=== PATIENT | female | born 1960 | race Caucasian/White ===

== ENCOUNTER 2023-07-05 15:48 | Inpatient (IN) | payer MEDICARE, OTHER ==
[~2023-07-05] VITALS: Ht 167.6 cm; Wt 87.5 kg
[2023-07-05] MEDS ORDERED: KETOROLAC TROMETHAMINE INJ 30 MG/ML VIAL ONE (16:43)
[2023-07-05] MEDS ORDERED: KETOROLAC TROMETHAMINE 15 MG/ML VIAL IV ONE (17:00)
[2023-07-05 17:24] LABS: BASOPHILS # (AUTO) 0.2 K/uL (0.0-0.2); BASOPHILS % (AUTO) 1.2 % (0.0-2.0); EOSINOPHILS # (AUTO) 0.2 K/uL (0.0-0.7); EOSINOPHILS % (AUTO) 1.3 % (0.0-6.0); HEMATOCRIT 33 % (33-45); HEMOGLOBIN 10.9 g/dL (11.5-14.8); LYMPHOCYTES % (AUTO) 18.4 % (20.0-44.0); MEAN CORPUSCULAR HEMOGLOBIN 31 PG (26.0-33.0); MEAN CORPUSCULAR HGB CONC 33 g/dl (31.0-36.0); MEAN CORPUSCULAR VOLUME 95 fL (82-100); MONOCYTES # (AUTO) 2.8 K/uL (0.1-1.30); NEUTROPHILS # (AUTO) 10.2 K/uL (1.8-8.9); NEUTROPHILS % (AUTO) 62.1 % (43.0-81.0); PLATELET COUNT (AUTO) 451 K/uL (150-450); RED BLOOD CELL COUNT(AUTO) 3.52 MIL/uL (4.0-5.2); WHITE BLOOD COUNT (AUTO) 16.5 K/uL (4.3-11.0)
[2023-07-05] MEDS ORDERED: IV NS 0.9% 1,000 ML IV PRN (17:30)
[2023-07-05] MEDS ORDERED: MAGNESIUM HYDROXIDE 30 ML UDC PO PRN (17:30)
[2023-07-05] MEDS ORDERED: Z GUARD REMEDY 4 OZ OINT TP PRN (17:30)
[2023-07-05] MEDS ORDERED: ONDANSETRON HCL/PF 4 MG/2 ML VIAL IVP PRN (17:30)
[2023-07-05] MEDS ORDERED: MAG HYDROX/AL HYDROX/SIMETH 30 ML UDC PO PRN (17:30)
[2023-07-05] MEDS ORDERED: MULT-24 PO (17:44)
[2023-07-05] MEDS ORDERED: CLON0.5T4 PO (17:44)
[2023-07-05] MEDS ORDERED: ALBU2.5V38 IH (17:44)
[2023-07-05] MEDS ORDERED: TEMA15CA PO (17:44)
[2023-07-05] MEDS ORDERED: OLAN2.5T3 PO (17:44)
[2023-07-05] MEDS ORDERED: RISP0.2515 PO (17:44)
[2023-07-05] MEDS ORDERED: OLAN7.5T3 PO (17:44)
[2023-07-05] MEDS ORDERED: DIVA-78 PO (17:44)
[2023-07-05] MEDS ORDERED: MAG30ORA PO (17:44)
[2023-07-05] MEDS ORDERED: MEMA10TA56 PO (17:44)
[2023-07-05] MEDS ORDERED: THIA100T74 PO (17:44)
[2023-07-05] MEDS ORDERED: DIVA-76 PO (17:44)
[2023-07-05] MEDS ORDERED: MAGN400O6 PO (17:44)
[2023-07-05] MEDS ORDERED: IPRA12.9 IH (17:44)
[2023-07-05] MEDS ORDERED: FOLI0.4T6 PO (17:44)
[2023-07-05] MEDS ORDERED: BENZ1TAB7 PO (17:44)
[2023-07-05] MEDS ORDERED: ACET-868 PO (17:44)
[2023-07-05 17:57] LABS: BILIRUBIN,DIRECT 0.1 mg/dL (0.0-0.2); BILIRUBIN,TOTAL 0.2 mg/dL (0.2-1.0); CALCIUM, SERUM 9.3 mg/dL (8.5-10.1)
[2023-07-05] MEDS ORDERED: AZITHROMYCIN 500 MG in IV D5W 250 ML IV ONE (18:00)
[2023-07-05] MEDS ORDERED: CEFTRIAXONE 1GM BAG (ER ONLY) 50 ML IV ONE ×2 (18:00→18:06)
[2023-07-05 20:46] LABS: BAND % (MANUAL) 4 % (0.0-5.0); LYMPHOCYTES % (MANUAL) 16 % (16-48); MONOCYTES % (MANUAL) 9 % (0-11.0); NEUTROPHILS % (MANUAL) 70 (42-76); PLATELET ESTIMATE INCREASED; REACTIVE LYMPHOCYTES 1 % (0-0)
[2023-07-05 20:47] LABS: ANISOCYTOSIS 1+
[2023-07-06] MEDS ORDERED: ZOLPIDEM TARTRATE 5 MG TABLET ONE (01:10)
[2023-07-06] MEDS: ZOLPIDEM TARTRATE 5 MG TABLET PO PRN (01:12)
[2023-07-06] MEDS: ZOSYN IVPB 3.375 G in IV D5W 50ml IV SCH ×3 (08:30→20:30)
[2023-07-06 09:12] LABS: BASOPHILS # (AUTO) 0.1 K/uL (0.0-0.2); BASOPHILS % (AUTO) 0.6 % (0.0-2.0); EOSINOPHILS % (AUTO) 0.2 % (0.0-6.0); HEMATOCRIT 33 % (33-45); HEMOGLOBIN 10.9 g/dL (11.5-14.8); LYMPHOCYTES # (AUTO) 1.6 K/uL (0.8-4.8); LYMPHOCYTES % (AUTO) 9.6 % (20.0-44.0); MEAN CORPUSCULAR HEMOGLOBIN 31 PG (26.0-33.0); MEAN CORPUSCULAR HGB CONC 33 g/dl (31.0-36.0); MEAN CORPUSCULAR VOLUME 94 fL (82-100); MONOCYTES # (AUTO) 2.4 K/uL (0.1-1.30); MONOCYTES % (AUTO) 14.6 % (2.0-12.0); NEUTROPHILS # (AUTO) 12.2 K/uL (1.8-8.9); PLATELET COUNT (AUTO) 480 K/uL (150-450); RED BLOOD CELL COUNT(AUTO) 3.54 MIL/uL (4.0-5.2); WHITE BLOOD COUNT (AUTO) 16.3 K/uL (4.3-11.0)
[2023-07-06 09:29] LABS: CALCIUM, SERUM 9.2 mg/dL (8.5-10.1); CREATININE 1.1 mg/dL (0.6-1.3); PHOSPHORUS 2.6 mg/dL (2.5-4.9)
[2023-07-06] MEDS ORDERED: PIPERACI/TAZO 3.375GM/D5W 50ML PB IV ONE ×2 (15:49→20:22)
[2023-07-07] MEDS: ZOLPIDEM TARTRATE 5 MG TABLET PO PRN (01:40)
[2023-07-07] MEDS ORDERED: ZOLPIDEM TARTRATE 5 MG TABLET ONE (01:40)
[2023-07-07] MEDS: ZOSYN IVPB 3.375 G in IV D5W 50ml IV SCH ×4 (02:00→20:14)
[2023-07-07] MEDS ORDERED: PIPERACI/TAZO 3.375GM/D5W 50ML PB IV ONE ×4 (03:09→19:44)
[2023-07-07] MEDS ORDERED: IV NS 0.9% 250 ML IV ONE (07:59)
[2023-07-07] MEDS ORDERED: IOHEXOL-300 100 ML VIAL IV ONE (07:59)
[2023-07-07 10:11] LABS: THYROID STIMULATING HORMONE 1.661 uIU/mL (0.358-3.74)
[2023-07-07 10:20] LABS: C-REACTIVE PROTEIN 10.09 mg/dL (0.0-0.30)
[2023-07-07 10:21] LABS: RHEUMATOID FACTOR SCREEN NEGATIVE (NEGATIVE)
[2023-07-07 10:55] LABS: POTASSIUM 3.8 mmol/L (3.5-5.1)
[2023-07-07 11:12] LABS: BASOPHILS # (AUTO) 0.1 K/uL (0.0-0.2); BASOPHILS % (AUTO) 0.6 % (0.0-2.0); EOSINOPHILS # (AUTO) 0.1 K/uL (0.0-0.7); HEMATOCRIT 32 % (33-45); HEMOGLOBIN 10.3 g/dL (11.5-14.8); LYMPHOCYTES # (AUTO) 2.1 K/uL (0.8-4.8); LYMPHOCYTES % (AUTO) 14.1 % (20.0-44.0); MEAN CORPUSCULAR HEMOGLOBIN 31 PG (26.0-33.0); MEAN CORPUSCULAR HGB CONC 32 g/dl (31.0-36.0); MEAN CORPUSCULAR VOLUME 95 fL (82-100); MONOCYTES # (AUTO) 2.4 K/uL (0.1-1.30); MONOCYTES % (AUTO) 16.3 % (2.0-12.0); NEUTROPHILS # (AUTO) 9.9 K/uL (1.8-8.9); PLATELET COUNT (AUTO) 482 K/uL (150-450); RED BLOOD CELL COUNT(AUTO) 3.34 MIL/uL (4.0-5.2); RED CELL DISTRIBUTION WIDTH 13.9 % (11.5-15.0); WHITE BLOOD COUNT (AUTO) 14.6 K/uL (4.3-11.0)
[2023-07-07 16:13] LABS: HIV-1 p24 ANTIGEN NON REACTIVE (NONREACTIVE); HIV-1/2 ANTIBODY NON REACTIVE (NONREACTIVE)
[2023-07-07] MEDS ORDERED: ACETAMINOPHEN 325 MG TABLET ONE (22:03)
[2023-07-07] MEDS: ACETAMINOPHEN 325 MG TABLET PO PRN (22:09)
[2023-07-08] MEDS ORDERED: ZOLPIDEM TARTRATE 5 MG TABLET ONE (01:44)
[2023-07-08] MEDS: ZOLPIDEM TARTRATE 5 MG TABLET PO PRN ×2 (01:46→23:05)
[2023-07-08] MEDS ORDERED: PIPERACI/TAZO 3.375GM/D5W 50ML PB IV ONE ×3 (01:48→20:44)
[2023-07-08] MEDS: ZOSYN IVPB 3.375 G in IV D5W 50ml IV SCH ×4 (02:01→20:00)
[2023-07-08 07:36] LABS: BASOPHILS # (AUTO) 0.1 K/uL (0.0-0.2); BASOPHILS % (AUTO) 0.8 % (0.0-2.0); EOSINOPHILS # (AUTO) 0.3 K/uL (0.0-0.7); EOSINOPHILS % (AUTO) 2.4 % (0.0-6.0); HEMATOCRIT 33 % (33-45); HEMOGLOBIN 10.9 g/dL (11.5-14.8); LYMPHOCYTES # (AUTO) 2.3 K/uL (0.8-4.8); LYMPHOCYTES % (AUTO) 16.1 % (20.0-44.0); MEAN CORPUSCULAR HEMOGLOBIN 31 PG (26.0-33.0); MEAN CORPUSCULAR HGB CONC 33 g/dl (31.0-36.0); MEAN CORPUSCULAR VOLUME 95 fL (82-100); MONOCYTES # (AUTO) 1.9 K/uL (0.1-1.30); NEUTROPHILS # (AUTO) 9.7 K/uL (1.8-8.9); NEUTROPHILS % (AUTO) 67.7 % (43.0-81.0); PLATELET COUNT (AUTO) 489 K/uL (150-450); RED CELL DISTRIBUTION WIDTH 14.2 % (11.5-15.0); WHITE BLOOD COUNT (AUTO) 14.3 K/uL (4.3-11.0)
[2023-07-08 07:52] LABS: CALCIUM, SERUM 9.3 mg/dL (8.5-10.1); CREATININE 1.1 mg/dL (0.6-1.3)
[2023-07-08] MEDS ORDERED: ACETAMINOPHEN 325 MG TABLET ONE (22:53)
[2023-07-08] MEDS: ACETAMINOPHEN 325 MG TABLET PO PRN (23:05)
[2023-07-09] MEDS: ZOSYN IVPB 3.375 G in IV D5W 50ml IV SCH ×4 (02:00→21:49)
[2023-07-09 07:07] LABS: FOLIC ACID > 20.0 ng/mL (>3.0)
[2023-07-09 09:10] LABS: *ANA ANTI-CENTROMERE B AB <0.2 AI (0.0-0.9); *ANA ANTI-DNA(DS) AB, QN <1 IU/mL (0-9); *ANA ANTI-JO-1 <0.2 AI (0.0-0.9); *ANA ANTICHROMATIN ANTIBODY <0.2 AI (0.0-0.9); *ANA RNP ANTIBODIES 0.2 AI (0.0-0.9); *ANA SJOGREN'S ANTI-SS-A <0.2 AI (0.0-0.9); *ANA SJOGREN'S ANTI-SS-B <0.2 AI (0.0-0.9); *ANAANTI-SCLERODERMA-70 AB <0.2 AI (0.0-0.9); *ANASMITH AB <0.2 AI (0.0-0.9)
[2023-07-09 10:00] VITALS: BP 106/57; TEMP 98.7; O2SAT 93
[2023-07-09 16:00] VITALS: BP 116/72; TEMP 99; O2SAT 93
[2023-07-09 18:31] LABS: BASOPHILS # (AUTO) 0.1 K/uL (0.0-0.2); BASOPHILS % (AUTO) 0.5 % (0.0-2.0); EOSINOPHILS # (AUTO) 0.2 K/uL (0.0-0.7); EOSINOPHILS % (AUTO) 1.1 % (0.0-6.0); HEMATOCRIT 34 % (33-45); HEMOGLOBIN 10.9 g/dL (11.5-14.8); LYMPHOCYTES # (AUTO) 2.5 K/uL (0.8-4.8); LYMPHOCYTES % (AUTO) 13.5 % (20.0-44.0); MEAN CORPUSCULAR HEMOGLOBIN 31 PG (26.0-33.0); MEAN CORPUSCULAR HGB CONC 33 g/dl (31.0-36.0); MEAN CORPUSCULAR VOLUME 94 fL (82-100); MONOCYTES # (AUTO) 1.6 K/uL (0.1-1.30); MONOCYTES % (AUTO) 8.3 % (2.0-12.0); NEUTROPHILS # (AUTO) 14.5 K/uL (1.8-8.9); NEUTROPHILS % (AUTO) 76.6 % (43.0-81.0); PLATELET COUNT (AUTO) 589 K/uL (150-450); RED BLOOD CELL COUNT(AUTO) 3.56 MIL/uL (4.0-5.2); RED CELL DISTRIBUTION WIDTH 13.7 % (11.5-15.0); WHITE BLOOD COUNT (AUTO) 18.9 K/uL (4.3-11.0)
[2023-07-10] VITALS: BP 122/75; TEMP 99; O2SAT 93
[2023-07-10] MEDS: ZOSYN IVPB 3.375 G in IV D5W 50ml IV SCH ×4 (03:08→19:48)
[2023-07-10 08:00] VITALS: BP_SYST 116; BP_DIAS 7; BP_DIAS 73; TEMP 99.5; O2SAT 94
[2023-07-10 08:07] LABS: BASOPHILS # (AUTO) 0.2 K/uL (0.0-0.2); BASOPHILS % (AUTO) 0.7 % (0.0-2.0); EOSINOPHILS # (AUTO) 0.2 K/uL (0.0-0.7); EOSINOPHILS % (AUTO) 0.7 % (0.0-6.0); HEMATOCRIT 34 % (33-45); HEMOGLOBIN 10.9 g/dL (11.5-14.8); LYMPHOCYTES # (AUTO) 2.6 K/uL (0.8-4.8); LYMPHOCYTES % (AUTO) 11.4 % (20.0-44.0); MEAN CORPUSCULAR HEMOGLOBIN 30 PG (26.0-33.0); MEAN CORPUSCULAR HGB CONC 32 g/dl (31.0-36.0); MEAN CORPUSCULAR VOLUME 94 fL (82-100); MONOCYTES # (AUTO) 2.3 K/uL (0.1-1.30); MONOCYTES % (AUTO) 10.3 % (2.0-12.0); NEUTROPHILS # (AUTO) 17.3 K/uL (1.8-8.9); NEUTROPHILS % (AUTO) 76.9 % (43.0-81.0); PLATELET COUNT (AUTO) 602 K/uL (150-450); RED CELL DISTRIBUTION WIDTH 13.9 % (11.5-15.0); WHITE BLOOD COUNT (AUTO) 22.5 K/uL (4.3-11.0)
[2023-07-10 08:11] LABS: *SPE A/G RATIO 0.5 (0.7-1.7); *SPE ALBUMIN 1.9 g/dL (2.9-4.4); *SPE ALPHA-1-GLOBULIN 0.4 g/dL (0.0-0.4); *SPE BETA GLOBULIN 0.9 g/dL (0.7-1.3); *SPE GLOBULIN, TOTAL 3.7 g/dL (2.2-3.9); *SPE M-SPIKE Not Observed g/dL (Not Observed); *SPE PROTEIN TOTAL 5.6 g/dL (6.0-8.5); *SPEGAMMA GLOBULIN 1.4 g/dL (0.4-1.8)
[2023-07-10 08:17] LABS: CALCIUM, SERUM 9.2 mg/dL (8.5-10.1); CREATININE 1.1 mg/dL (0.6-1.3); POTASSIUM 3.6 mmol/L (3.5-5.1)
[2023-07-10 08:18] LABS: INR 0.98 (0.91-1.10); PARTIAL THROMBOPLASTIN TIME 25.9 SEC (24.3-34.3); PROTHROMBIN TIME 10.4 SECS (9.2-11.1)
[2023-07-10 13:28] LABS: BAND % (MANUAL) 2 % (0.0-5.0); EOSINOPHILS % (MANUAL) 1 % (0-4); LYMPHOCYTES % (MANUAL) 16 % (16-48); MONOCYTES % (MANUAL) 6 % (0-11.0); NEUTROPHILS % (MANUAL) 75 (42-76); PLATELET ESTIMATE INCREASED
[2023-07-10 16:00] VITALS: BP 110/71; TEMP 99; O2SAT 95
[2023-07-10] MEDS ORDERED: FLUMAZENIL 0.5 MG VIAL IV PRN (16:30)
[2023-07-10] MEDS ORDERED: FENTANYL PF 250MCG/5ML AMPUL IV PRN (16:30)
[2023-07-10] MEDS ORDERED: MIDAZOLAM HCL 2 MG/2ML VIAL IV PRN (16:30)
[2023-07-10] MEDS ORDERED: NALOXONE PREFILLED SYRINGE 2 MG/2 ML SYRINGE IV PRN (16:30)
[2023-07-10] MEDS: ACETAMINOPHEN 325 MG TABLET PO PRN (23:31)
[2023-07-11] MEDS ORDERED: HYDROCODONE/APAP 10/325MG TABLET PO PRN
[2023-07-11] MEDS: ZOSYN IVPB 3.375 G in IV D5W 50ml IV SCH ×4 (01:52→20:23)
[2023-07-11 02:08] LABS: IMMUNOGLOBULIN A, SERUM 313 mg/dL (87-352); IMMUNOGLOBULIN G, SERUM 1331 mg/dL (586-1602); IMMUNOGLOBULIN M, SERUM 170 mg/dL (26-217)
[2023-07-11 04:55] VITALS: BP 132/78; TEMP 98.4; O2SAT 93
[2023-07-11 06:06] LABS: HEPATITIS B SURFACE AB Non Reactive (.)
[2023-07-11 08:00] VITALS: BP 130/75; TEMP 100.6; O2SAT 93
[2023-07-11 08:04] LABS: CALCIUM, SERUM 9.1 mg/dL (8.5-10.1); CREATININE 1.1 mg/dL (0.6-1.3); POTASSIUM 3.4 mmol/L (3.5-5.1)
[2023-07-11 08:11] LABS: BASOPHILS # (AUTO) 0.1 K/uL (0.0-0.2); BASOPHILS % (AUTO) 0.5 % (0.0-2.0); EOSINOPHILS # (AUTO) 0.3 K/uL (0.0-0.7); EOSINOPHILS % (AUTO) 1.4 % (0.0-6.0); HEMATOCRIT 31 % (33-45); HEMOGLOBIN 10.4 g/dL (11.5-14.8); LYMPHOCYTES # (AUTO) 1.8 K/uL (0.8-4.8); LYMPHOCYTES % (AUTO) 9.7 % (20.0-44.0); MEAN CORPUSCULAR HEMOGLOBIN 31 PG (26.0-33.0); MEAN CORPUSCULAR HGB CONC 33 g/dl (31.0-36.0); MEAN CORPUSCULAR VOLUME 94 fL (82-100); MONOCYTES # (AUTO) 1.6 K/uL (0.1-1.30); MONOCYTES % (AUTO) 8.6 % (2.0-12.0); NEUTROPHILS # (AUTO) 14.7 K/uL (1.8-8.9); NEUTROPHILS % (AUTO) 79.8 % (43.0-81.0); PLATELET COUNT (AUTO) 539 K/uL (150-450); RED BLOOD CELL COUNT(AUTO) 3.35 MIL/uL (4.0-5.2); RED CELL DISTRIBUTION WIDTH 14.2 % (11.5-15.0); WHITE BLOOD COUNT (AUTO) 18.4 K/uL (4.3-11.0)
[2023-07-11] MEDS: ACETAMINOPHEN 325 MG TABLET PO PRN (09:36)
[2023-07-11] MEDS ORDERED: POTASSIUM CHLORIDE 20 MEQ TAB.PRT.SR PO ONE (10:00)
[2023-07-11 16:00] VITALS: BP 135/72; TEMP 98.6; O2SAT 93
[2023-07-12] VITALS: BP 115/65; TEMP 97.7; O2SAT 98
[2023-07-12] MEDS: ACETAMINOPHEN 325 MG TABLET PO PRN (01:00)
[2023-07-12] MEDS: ZOLPIDEM TARTRATE 5 MG TABLET PO PRN (01:06)
[2023-07-12] MEDS: ZOSYN IVPB 3.375 G in IV D5W 50ml IV SCH ×4 (02:52→20:19)
[2023-07-12 06:51] LABS: BASOPHILS # (AUTO) 0.1 K/uL (0.0-0.2); BASOPHILS % (AUTO) 0.5 % (0.0-2.0); EOSINOPHILS # (AUTO) 0.3 K/uL (0.0-0.7); EOSINOPHILS % (AUTO) 1.7 % (0.0-6.0); HEMATOCRIT 31 % (33-45); HEMOGLOBIN 10.2 g/dL (11.5-14.8); LYMPHOCYTES # (AUTO) 2.4 K/uL (0.8-4.8); LYMPHOCYTES % (AUTO) 14.1 % (20.0-44.0); MEAN CORPUSCULAR HEMOGLOBIN 31 PG (26.0-33.0); MEAN CORPUSCULAR HGB CONC 33 g/dl (31.0-36.0); MEAN CORPUSCULAR VOLUME 94 fL (82-100); MONOCYTES # (AUTO) 1.5 K/uL (0.1-1.30); MONOCYTES % (AUTO) 8.9 % (2.0-12.0); NEUTROPHILS # (AUTO) 12.9 K/uL (1.8-8.9); NEUTROPHILS % (AUTO) 74.8 % (43.0-81.0); PLATELET COUNT (AUTO) 510 K/uL (150-450); RED BLOOD CELL COUNT(AUTO) 3.27 MIL/uL (4.0-5.2); RED CELL DISTRIBUTION WIDTH 13.7 % (11.5-15.0); WHITE BLOOD COUNT (AUTO) 17.3 K/uL (4.3-11.0)
[2023-07-12 07:08] LABS: CALCIUM, SERUM 9.2 mg/dL (8.5-10.1); POTASSIUM 3.2 mmol/L (3.5-5.1)
[2023-07-12 08:00] VITALS: BP 112/92; TEMP 98.6; O2SAT 96
[2023-07-12] MEDS ORDERED: POTASSIUM CHLORIDE 20 MEQ TAB.PRT.SR PO ONE (08:00)
[2023-07-12 16:00] VITALS: BP 122/80; TEMP 99.3; O2SAT 94
[2023-07-12 20:00] VITALS: BP 124/90; TEMP 98.8; O2SAT 94
[2023-07-13] MEDS: ZOSYN IVPB 3.375 G in IV D5W 50ml IV SCH ×4 (01:43→19:54)
[2023-07-13 04:00] VITALS: BP 113/65; TEMP 98.8; O2SAT 91
[2023-07-13] MEDS: ACETAMINOPHEN 325 MG TABLET PO PRN (04:11)
[2023-07-13 11:24] LABS: BASOPHILS # (AUTO) 0.1 K/uL (0.0-0.2); BASOPHILS % (AUTO) 0.5 % (0.0-2.0); EOSINOPHILS # (AUTO) 0.4 K/uL (0.0-0.7); EOSINOPHILS % (AUTO) 2.4 % (0.0-6.0); HEMATOCRIT 32 % (33-45); HEMOGLOBIN 10.5 g/dL (11.5-14.8); LYMPHOCYTES # (AUTO) 1.8 K/uL (0.8-4.8); LYMPHOCYTES % (AUTO) 11.6 % (20.0-44.0); MEAN CORPUSCULAR HEMOGLOBIN 31 PG (26.0-33.0); MEAN CORPUSCULAR HGB CONC 33 g/dl (31.0-36.0); MEAN CORPUSCULAR VOLUME 95 fL (82-100); MONOCYTES # (AUTO) 1.3 K/uL (0.1-1.30); MONOCYTES % (AUTO) 8.3 % (2.0-12.0); NEUTROPHILS # (AUTO) 11.8 K/uL (1.8-8.9); NEUTROPHILS % (AUTO) 77.2 % (43.0-81.0); PLATELET COUNT (AUTO) 467 K/uL (150-450); RED BLOOD CELL COUNT(AUTO) 3.34 MIL/uL (4.0-5.2); RED CELL DISTRIBUTION WIDTH 14.2 % (11.5-15.0); WHITE BLOOD COUNT (AUTO) 15.3 K/uL (4.3-11.0)
[2023-07-13 11:32] LABS: CALCIUM, SERUM 9.1 mg/dL (8.5-10.1); CREATININE 0.9 mg/dL (0.6-1.3); POTASSIUM 3.4 mmol/L (3.5-5.1)
[2023-07-13 12:00] VITALS: BP 108/65; TEMP 98.9; O2SAT 91
[2023-07-13] MEDS ORDERED: POTASSIUM CHLORIDE 20 MEQ TAB.PRT.SR PO ONE (18:30)
[2023-07-13 20:00] VITALS: BP 124/76; TEMP 99.5; O2SAT 94
[2023-07-13] MEDS: ZOLPIDEM TARTRATE 5 MG TABLET PO PRN (21:11)
[2023-07-14] MEDS: ZOSYN IVPB 3.375 G in IV D5W 50ml IV SCH ×2 (01:01→08:06)
[2023-07-14 04:31] VITALS: BP 129/81; TEMP 99; O2SAT 97
[2023-07-14 07:36] LABS: BASOPHILS # (AUTO) 0.1 K/uL (0.0-0.2); EOSINOPHILS # (AUTO) 0.3 K/uL (0.0-0.7); EOSINOPHILS % (AUTO) 2.4 % (0.0-6.0); HEMATOCRIT 31 % (33-45); HEMOGLOBIN 10.1 g/dL (11.5-14.8); LYMPHOCYTES # (AUTO) 1.9 K/uL (0.8-4.8); LYMPHOCYTES % (AUTO) 13.8 % (20.0-44.0); MEAN CORPUSCULAR HEMOGLOBIN 31 PG (26.0-33.0); MEAN CORPUSCULAR HGB CONC 33 g/dl (31.0-36.0); MEAN CORPUSCULAR VOLUME 94 fL (82-100); MONOCYTES # (AUTO) 1.3 K/uL (0.1-1.30); NEUTROPHILS # (AUTO) 10.3 K/uL (1.8-8.9); NEUTROPHILS % (AUTO) 73.8 % (43.0-81.0); PLATELET COUNT (AUTO) 444 K/uL (150-450); RED BLOOD CELL COUNT(AUTO) 3.26 MIL/uL (4.0-5.2)
[2023-07-14 08:00] LABS: CALCIUM, SERUM 9.2 mg/dL (8.5-10.1); CREATININE 0.9 mg/dL (0.6-1.3); POTASSIUM 3.5 mmol/L (3.5-5.1)
[2023-07-14] MEDS ORDERED: LEVO500T90 PO (12:19)
[2023-07-14 13:24] VITALS: BP 140/82; TEMP 97.9; O2SAT 98
== END 2023-07-14 15:15 | DRG 177 ==
LOC: ER 15:58 → TRANSITION 18:45 → MEDSG1 07-08 18:36
PROVIDERS: ADMIT Internal Medicine; ATTEND Internal Medicine
PROC: 0BDF4ZX Extraction of Right Lower Lung Lobe, Percutaneous Endoscopic Approach, Diagnostic (ICD-10-PCS; principal; 2023-07-10)
DX: J15.69 Pneumonia due to other Gram-negative bacteria (principal); E43 Unspecified severe protein-calorie malnutrition; E87.1 Hypo-osmolality and hyponatremia; J44.0 Chronic obstructive pulmonary disease with (acute) lower respiratory infection; M54.9 Dorsalgia, unspecified; F03.90 Unspecified dementia, unspecified severity, without behavioral disturbance, psychotic disturbance, mood disturbance, and anxiety; M19.90 Unspecified osteoarthritis, unspecified site; D64.9 Anemia, unspecified; D72.821 Monocytosis (symptomatic); D75.839 Thrombocytosis, unspecified; E66.9 Obesity, unspecified; E88.09 Other disorders of plasma-protein metabolism, not elsewhere classified; F17.210 Nicotine dependence, cigarettes, uncomplicated; Z71.6 Tobacco abuse counseling; F41.9 Anxiety disorder, unspecified; R59.0 Localized enlarged lymph nodes; D72.829 Elevated white blood cell count, unspecified; Z68.31 Body mass index [BMI] 31.0-31.9, adult; R91.8 Other nonspecific abnormal finding of lung field; F17.200 Nicotine dependence, unspecified, uncomplicated
CPT/HCPCS: 36415; 71045-TC; 71046; 71250-TC; 71270-TC; 72131-TC; 72192-TC; 74178; 76942-TC; 80048-TC; 80076-TC; 82378; 82607-TC; 82728-TC; 82784; 83540-TC; 83615-TC; 83735-TC; 84100-TC; 84155; 84165; 84443-TC; 85025-TC; 85610-TC; 85730-TC; 86140-TC; 86225; 86235; 86334; 86431-TC; 86706; 86803; 87040-TC; 87081-TC; 87340; 87806; A4223; G0378; J0696; J1885; J2543; J7030; J7050; J7060; Q9967

== ENCOUNTER 2024-04-17 17:31 | Inpatient (IN) | payer MEDICARE, OTHER ==
[~2024-04-17] VITALS: Ht 167.6 cm; Wt 81.6 kg
[~2024-04-17 17:31] MED LIST: ACET-868 PO; ALBU2.5V38 IH; BENZ1TAB7 PO; CLON0.5T4 PO; DIVA-76 PO; DIVA-78 PO; FOLI0.4T6 PO; IPRA12.9 IH; LEVO500T90 PO; MAG30ORA PO; MAGN400O6 PO; MEMA10TA56 PO; MULT-24 PO; OLAN2.5T3 PO; OLAN7.5T3 PO; RISP0.2515 PO; TEMA15CA PO; THIA100T74 PO
[2024-04-17 17:59] LABS: BASOPHILS # (AUTO) 0.1 K/uL (0.0-0.2); BASOPHILS % (AUTO) 1.3 % (0.0-2.0); EOSINOPHILS # (AUTO) 0.3 K/uL (0.0-0.7); EOSINOPHILS % (AUTO) 3.4 % (0.0-6.0); HEMATOCRIT 42 % (33-45); LYMPHOCYTES # (AUTO) 3.3 K/uL (0.8-4.8); LYMPHOCYTES % (AUTO) 40.9 % (20.0-44.0); MEAN CORPUSCULAR HEMOGLOBIN 33 PG (26.0-33.0); MEAN CORPUSCULAR HGB CONC 34 g/dl (31.0-36.0); MEAN CORPUSCULAR VOLUME 98 fL (82-100); MONOCYTES # (AUTO) 0.9 K/uL (0.1-1.30); NEUTROPHILS # (AUTO) 3.5 K/uL (1.8-8.9); NEUTROPHILS % (AUTO) 43.4 % (43.0-81.0); PLATELET COUNT (AUTO) 161 K/uL (150-450); RED BLOOD CELL COUNT(AUTO) 4.24 MIL/uL (4.0-5.2); RED CELL DISTRIBUTION WIDTH 13.6 % (11.5-15.0); WHITE BLOOD COUNT (AUTO) 8.1 K/uL (4.3-11.0)
[2024-04-17 18:19] LABS: ALANINE AMINOTRANSFERASE 22 U/L (12-78); ALBUMIN 3.2 g/dL (3.4-5.0); ALCOHOL, BLOOD < 3 mg/dL (0-10); ALKALINE PHOSPHATASE 72 U/L (46-116); ASPARTATE AMINOTRANSFERASE 21 U/L (15-37); BILIRUBIN,DIRECT 0.1 mg/dL (0.0-0.2); BILIRUBIN,TOTAL 0.3 mg/dL (0.2-1.0); CALCIUM, SERUM 9.2 mg/dL (8.5-10.1); CARBON DIOXIDE 28 mmol/L (21-32); CHLORIDE 108 mmol/L (98-107); CREATININE 1.1 mg/dL (0.6-1.3); GLUCOSE 94 mg/dL (74-106); POTASSIUM 4.2 mmol/L (3.5-5.1); SALICYLATE 3.3 mg/dL (2.8-20.0); SODIUM SERUM 142 mmol/L (136-145); TOTAL PROTEIN, SERUM 6.4 g/dL (6.4-8.2); UREA NITROGEN, BLOOD 23 mg/dL (7-18)
[2024-04-17 18:22] LABS: ACETAMINOPHEN 0 ug/ml (10-30)
[2024-04-17] MEDS ORDERED: BISA10SU11 RC (18:27)
[2024-04-17] MEDS ORDERED: NA P133E RC (18:27)
[2024-04-17] MEDS ORDERED: ACET-868 PO (18:27)
[2024-04-17] MEDS ORDERED: MAG-151 PO (18:27)
[2024-04-17] MEDS ORDERED: FAMO20TA80 PO (18:27)
[2024-04-17] MEDS: LORAZEPAM 1 MG TABLET PO ONE (19:11)
[2024-04-17] MEDS ORDERED: BISACODYL SUPP (10 MG) 10 MG/SUPP.RECT SUPP.RECT RC PRN (19:30)
[2024-04-17 19:33] LABS: APPEARANCE,URINE CLEAR (CLEAR); BILIRUBIN,URINE NEGATIVE (NEGATIVE); BLOOD, URINE NEGATIVE Ery/uL (NEGATIVE); COLOR,URINE YELLOW (YELLOW); KETONES,URINE NEGATIVE (NEGATIVE); LEUKOCYTE ESTERASE ,URINE 1+ (NEGATIVE); NITRITE, URINE NEGATIVE (NEGATIVE); PROTEIN,URINE NEGATIVE (NEGATIVE); UGLUCOSE NEGATIVE (NEGATIVE)
[2024-04-17 19:35] LABS: AMPHETAMINE, URINE NEGATIVE (NEGATIVE); BARBITURATE, URINE NEGATIVE (NEGATIVE); BENZODIAZEPINE, URINE NEGATIVE (NEGATIVE); CANNABINOID, URINE NEGATIVE (NEGATIVE); COCCAINE, URINE NEGATIVE (NEGATIVE); OPIATE, URINE NEGATIVE (NEGATIVE); PHENCYCLIDINE SCREEN,URINE NEGATIVE (NEGATIVE)
[2024-04-17 19:44] LABS: RBC,URINE 0-2 /HPF (0-2)
[2024-04-17 19:45] LABS: ADD URINE CULTURE YES; BACTERIA,URINE Few /HPF (None Seen); SQUAMOUS EPITHELIAL CELL,UR Rare /HPF (None Seen); WBC,URINE 21-50 /HPF (0-3)
[2024-04-17] MEDS ORDERED: TEMAZEPAM 7.5 MG CAPSULE PO PRN (22:30)
[2024-04-17] MEDS ORDERED: clonazePAM 0.5 MG TABLET PO PRN ×2 (22:30)
[2024-04-17] MEDS ORDERED: MAGNESIUM HYDROXIDE 30 ML UDC PO PRN (22:30)
[2024-04-17] MEDS ORDERED: MAG HYDROX/AL HYDROX/SIMETH 30 ML UDC PO PRN (22:30)
[2024-04-17 23:20] VITALS: BP 129/75; TEMP 98; O2SAT 98
[2024-04-17] MEDS: BLOOD SUGAR DIAGNOSTIC 1 EACH STRIP IN ONE (23:24)
[2024-04-18 08:00] VITALS: BP 137/83; TEMP 97.7; O2SAT 98
[2024-04-18] MEDS: DIVALPROEX SODIUM 250 MG TABLET.DR PO SCH ×2 (08:47→21:19)
[2024-04-18] MEDS: CEPHALEXIN MONOHYDRATE 500 MG CAPSULE PO SCH (08:47)
[2024-04-18] MEDS: OLANZAPINE 2.5 MG TABLET PO SCH ×2 (08:48→21:19)
[2024-04-18] MEDS: MULTIVITAMINS,THERAGRAN 1 UDTAB TABLET PO SCH (08:48)
[2024-04-18] MEDS: FOLIC ACID 1 MG TABLET PO SCH (08:48)
[2024-04-18] MEDS: MEMANTINE HCL 5 MG TABLET PO SCH (08:48)
[2024-04-18] MEDS: FAMOTIDINE (20 MG) 20 MG TABLET PO SCH (08:50)
[2024-04-18] MEDS: clonazePAM 0.5 MG TABLET PO SCH (08:50)
[2024-04-18 16:00] VITALS: BP 139/81; TEMP 98.8; O2SAT 98
[2024-04-18 20:00] VITALS: BP 132/77; TEMP 98.4; O2SAT 95
[2024-04-19 06:41] LABS: BASOPHILS # (AUTO) 0.1 K/uL (0.0-0.2); BASOPHILS % (AUTO) 1.4 % (0.0-2.0); EOSINOPHILS # (AUTO) 0.2 K/uL (0.0-0.7); EOSINOPHILS % (AUTO) 3.1 % (0.0-6.0); HEMATOCRIT 41 % (33-45); HEMOGLOBIN 13.9 g/dL (11.5-14.8); LYMPHOCYTES % (AUTO) 44.6 % (20.0-44.0); MEAN CORPUSCULAR HEMOGLOBIN 33 PG (26.0-33.0); MEAN CORPUSCULAR HGB CONC 34 g/dl (31.0-36.0); MEAN CORPUSCULAR VOLUME 97 fL (82-100); MONOCYTES # (AUTO) 0.6 K/uL (0.1-1.30); MONOCYTES % (AUTO) 9.5 % (2.0-12.0); NEUTROPHILS # (AUTO) 2.8 K/uL (1.8-8.9); NEUTROPHILS % (AUTO) 41.4 % (43.0-81.0); PLATELET COUNT (AUTO) 152 K/uL (150-450); RED BLOOD CELL COUNT(AUTO) 4.22 MIL/uL (4.0-5.2); RED CELL DISTRIBUTION WIDTH 13.6 % (11.5-15.0); WHITE BLOOD COUNT (AUTO) 6.7 K/uL (4.3-11.0)
[2024-04-19 06:52] LABS: CALCIUM, SERUM 9.7 mg/dL (8.5-10.1); POTASSIUM 4.4 mmol/L (3.5-5.1)
[2024-04-19 08:00] VITALS: BP 153/92; TEMP 98.2; O2SAT 96
[2024-04-19 16:00] VITALS: BP 122/81; TEMP 98.1; O2SAT 95
[2024-04-19 20:35] VITALS: BP 129/82; TEMP 98.2; O2SAT 98
[2024-04-20 08:00] VITALS: BP 133/78; TEMP 97.7; O2SAT 94
[2024-04-20] MEDS: NICOTINE PATCH (7MG) 7 MG PATCH.TD24 TD SCH (13:10)
[2024-04-20] MEDS: clonazePAM 0.5 MG TABLET PO PRN (15:35)
[2024-04-20 16:00] VITALS: BP 125/60; TEMP 97.4; O2SAT 97
[2024-04-20] MEDS: ACETAMINOPHEN 325 MG TABLET PO PRN (18:32)
[2024-04-20 21:36] VITALS: BP 123/76; TEMP 97.9; O2SAT 96
[2024-04-21 08:00] VITALS: BP 133/98; TEMP 97.8; O2SAT 98
[2024-04-21 16:00] VITALS: BP 106/72; TEMP 98.7; O2SAT 96
[2024-04-21 20:00] VITALS: BP 142/71; TEMP 97.8; O2SAT 94
[2024-04-22 08:00] VITALS: BP 128/91; TEMP 97.7; O2SAT 96
[2024-04-22 16:00] VITALS: BP 138/78; TEMP 98.8; O2SAT 98
[2024-04-22 20:00] VITALS: BP 131/91; TEMP 97.7; O2SAT 96
[2024-04-22] MEDS: TEMAZEPAM 7.5 MG CAPSULE PO PRN (22:33)
[2024-04-23 08:00] VITALS: BP 125/81; TEMP 97.8; O2SAT 97
[2024-04-23 16:15] VITALS: BP 105/67; TEMP 97.9; O2SAT 96
[2024-04-23 21:00] VITALS: BP 112/76; TEMP 97.8; O2SAT 96
[2024-04-24 08:00] VITALS: BP 147/90; TEMP 98.7; O2SAT 95
[2024-04-24] MEDS: clonazePAM 0.5 MG TABLET PO SCH (11:30)
[2024-04-24 16:00] VITALS: BP 110/81; TEMP 98; O2SAT 98
[2024-04-24 20:00] VITALS: BP 107/83; TEMP 97.9; O2SAT 97
[2024-04-25 08:00] VITALS: BP 145/86; TEMP 97.9; O2SAT 97
[2024-04-25 16:00] VITALS: BP 134/77; TEMP 98; O2SAT 98
[2024-04-25 20:00] VITALS: BP 125/75; TEMP 98.4; O2SAT 98
[2024-04-26 09:19] VITALS: BP 140/87; TEMP 98; O2SAT 95
[2024-04-26 16:00] VITALS: BP 111/72; TEMP 98.1; O2SAT 93
[2024-04-26 20:00] VITALS: BP 112/69; TEMP 98.1; O2SAT 95
[2024-04-27 08:00] VITALS: BP 118/87; TEMP 98.8; O2SAT 97
[2024-04-27 16:10] VITALS: BP 129/75; TEMP 97.7; O2SAT 97
[2024-04-27 20:00] VITALS: BP 129/78; TEMP 97.9; O2SAT 97
[2024-04-28 08:00] VITALS: BP 129/80; TEMP 98.1; O2SAT 94
[2024-04-28 15:59] VITALS: BP 115/80; TEMP 98.4; O2SAT 97
[2024-04-28 21:07] VITALS: BP 147/87; TEMP 98.2; O2SAT 96
[2024-04-29 08:00] VITALS: BP 128/91; TEMP 98; O2SAT 98
[2024-04-29 16:00] VITALS: BP 115/72; TEMP 98.1; O2SAT 100
[2024-04-29 22:01] VITALS: BP 116/69; TEMP 98.1; O2SAT 96
[2024-04-30 08:00] VITALS: BP 114/82; TEMP 97.8; O2SAT 100
[2024-04-30 16:00] VITALS: BP 122/79; TEMP 98.2; O2SAT 100
[2024-04-30 20:00] VITALS: BP 139/88; TEMP 97.9; O2SAT 99
[2024-05-01 08:00] VITALS: BP 139/75; TEMP 97.4; O2SAT 97
== END 2024-05-01 13:30 | DRG 885 ==
LOC: ER 17:35 → GPS 21:37
PROVIDERS: ADMIT Psychiatry & Neurology Psychiatry
DX: F20.9 Schizophrenia, unspecified (principal); F01.54 Vascular dementia, unspecified severity, with anxiety; N39.0 Urinary tract infection, site not specified; E44.0 Moderate protein-calorie malnutrition; F29 Unspecified psychosis not due to a substance or known physiological condition; E88.09 Other disorders of plasma-protein metabolism, not elsewhere classified; Z87.891 Personal history of nicotine dependence; Z90.5 Acquired absence of kidney; Z68.29 Body mass index [BMI] 29.0-29.9, adult; F41.9 Anxiety disorder, unspecified; B96.89 Other specified bacterial agents as the cause of diseases classified elsewhere
CPT/HCPCS: 36415; 80048-TC; 80061-TC; 80076-TC; 81001; 85025-TC; 87081-TC; 87086-TC; 97110-TC; 97116-TC; 97530-TC; G0480